=== PATIENT | female | born 1985 | race African-American/Black ===

== ENCOUNTER 2016-11-03 18:43 | Emergency (ER) | payer MEDICAID, OTHER ==
[~2016-11-03] VITALS: Ht 165.1 cm; Wt 83.5 kg
[~2016-11-03 18:43] MED LIST: BENZ200C47 PO; CLIN300C8 PO; PRED50TA PO; PROAIR HFA8.5 GM INH
[2016-11-03] MEDS ORDERED: AMOX875T PO (18:57)
--- NOTE | 2016-11-03 18:57 | PHYS DOC ---
Past Medical History Past Medical History: No Pertinent History Past Surgical History: Alcohol Use: None Drug Use: None Adult General Chief Complaint Chief Complaint: SORE THROAT HPI HPI Patient is a 30 year old female presents to the emergency department the three- day history of sore throat. She has had a positive strep exposure. She denies fever but complains of chills. Review of Systems Review of Systems Constitutional: Chills without measured fever Eyes: Denies change in visual acuity, redness, or eye pain [] HENT: Sore throat Respiratory: Denies cough or shortness of breath [] Cardiovascular: No additional information not addressed in HPI [] GI: Denies abdominal pain, nausea, vomiting, bloody stools or diarrhea [] : Denies dysuria or hematuria [] Musculoskeletal: Denies back pain or joint pain [] Integument: Denies rash or skin lesions [] Neurologic: Denies headache, focal weakness or sensory changes [] Endocrine: Denies polyuria or polydipsia [] Allergies Allergies Allergies Coded Allergies Type Severity Reaction Last Updated Verified No Known Drug Allergies 07/01/13 No Physical Exam Physical Exam Constitutional: Well developed, well nourished, no acute distress, non-toxic appearance. [] HENT: Normocephalic, atraumatic, bilateral external ears normal, oropharynx moist, posterior pharynx injected, uvula midline, no oral exudates, nose normal. [] Eyes: PERRLA, EOMI, conjunctiva normal, no discharge. [] Neck: Normal range of motion, no tenderness, supple with anterior cervical lymphadenopathy, no stridor. [] Cardiovascular:Heart rate regular rhythm, no murmur [] Lungs & Thorax: Bilateral breath sounds clear to auscultation [] Abdomen: Bowel sounds normal, soft, no tenderness, no masses, no pulsatile masses. [] Skin: Warm, dry, no erythema, no rash. [] Back: No tenderness, no CVA tenderness. [] EKG EKG [] Radiology/Procedures Radiology/Procedures [] Course & Med Decision Making Course & Med Decision Making Pertinent Labs and Imaging studies reviewed. (See chart for details) [] Dragon Disclaimer Dragon Disclaimer This electronic medical record was generated, in whole or in part, using a voice recognition dictation system. Departure Departure Impression: Primary Impression: Pharyngitis Disposition: 01 HOME, SELF-CARE Condition: STABLE Referrals: LONNIE CAMPOS (PCP) Patient Instructions: Viral and Bacterial Pharyngitis Scripts Amoxicillin (AMOXICILLIN) 875 Mg Tablet 1 TAB PO BID, #20 TAB Prov: LONNIE SEVILLA APRN 11/03/16 Problem Qualifiers Primary Impression: Pharyngitis Pharyngitis/tonsillitis etiology: unspecified etiology Qualified Codes: J02.9 - Acute pharyngitis, unspecified LONNIE SEVILLA APRN Nov 03, 2016 18:57
[2016-11-03 18:59] VITALS: BP 153/86
== END 2016-11-03 19:07 | disposition home or self-care (01) ==
LOC: ER 18:43
DX: J02.9 Acute pharyngitis, unspecified (principal)
CPT/HCPCS: 99283

== ENCOUNTER 2017-03-04 10:17 | Emergency (ER) | payer OTHER | END 2017-03-04 14:15 | disposition home or self-care (01) | LOC: ER 14:15 | DX: S86.912A Strain of unspecified muscle(s) and tendon(s) at lower leg level, left leg, initial encounter (principal); X58.XXXA Exposure to other specified factors, initial encounter; Y93.89 Activity, other specified; Y99.8 Other external cause status; Y92.89 Other specified places as the place of occurrence of the external cause | CPT/HCPCS: 93971; 99284-25 ==

== ENCOUNTER 2017-06-26 08:16 | Emergency (ER) | payer OTHER ==
[2017-06-26] MEDS: PENICILLIN G BENZATHINE LA 1,200,000 UNIT/2 ML DISP.SYRIN. IM (09:05)
== END 2017-06-26 09:12 | disposition home or self-care (01) ==
LOC: ER 08:16
DX: J03.90 Acute tonsillitis, unspecified (principal); J04.0 Acute laryngitis; H10.89 Other conjunctivitis
CPT/HCPCS: 96372; 99283-25; J0561

== ENCOUNTER 2017-09-06 11:49 | Emergency (ER) | payer OTHER | END 2017-09-06 12:25 | disposition home or self-care (01) | LOC: ER 11:49 | DX: B37.89 Other sites of candidiasis (principal) | CPT/HCPCS: 99283 ==

== ENCOUNTER 2018-03-29 08:45 | Emergency (ER) | payer OTHER ==
[~2018-03-29] VITALS: Ht 165.1 cm; Wt 88.5 kg
[~2018-03-29 08:45] MED LIST changes: +ALBU2.5V8 INH; +AMOX875T PO; +NYST100054 PO; -PROAIR HFA8.5 GM INH; +TOBR5DRO6 OD
--- NOTE | 2018-03-29 08:51 | PHYS DOC ---
Past Medical History Past Medical History: No Pertinent History (ANABEL CANTRELL DO) Past Surgical History: , Knee Replacement, Tubal ligation (ANABEL CANTRELL DO) Alcohol Use: None Drug Use: None (ANABEL CANTRELL DO) Adult General Chief Complaint Chief Complaint: Congestion HPI HPI Patient is a 32 YO F that is presenting with a week and a half of congestion and cough. She reports that her children were sick a couple weeks ago and she ended up getting the same symptoms that they had. She reports nasal congestion, sore throat, and productive cough with yellow sputum. She denies fever, chills, chest pain, abdominal pain, headache, nausea, and vomiting. She reports that she got her flu shot this season. She has not taken any medication for these symptoms. (ANABEL CANTRELL DO) Review of Systems Review of Systems Constitutional: Denies fever or chills [] Eyes: Denies change in visual acuity, redness, or eye pain [] HENT: Reports nasal congestion and sore throat [] Respiratory: Reports cough, denies shortness of breath [] Cardiovascular: Denies chest pain or palpitations [] GI: Denies abdominal pain, nausea, vomiting, or diarrhea [] : Denies dysuria or hematuria [] Integument: Denies rash or skin lesions [] Neurologic: Denies headache, focal weakness or sensory changes [] Complete systems were reviewed and found to be within normal limits, except as documented in this note. (ANABEL CANTRELL DO) Current Medications Current Medications Current Medications Medications (Trade) Dose Ordered Sig/Sienna Start Time Stop Time Status Last Admin Dose Admin Dexamethasone (Decadron) 10 mg 1X ONCE 03/29/18 09:00 03/29/18 09:01 DC 03/29/18 09:05 10 MG (YOLANDA PEACE APRN) Allergies Allergies Allergies Coded Allergies Type Severity Reaction Last Updated Verified No Known Drug Allergies 07/01/13 No (YOLANDA PEACE APRN) Physical Exam Physical Exam Constitutional: Well developed, well nourished, no acute distress, non-toxic appearance. [] HENT: Normocephalic, atraumatic, bilateral TM normal, oropharynx mildly erythematous, no oral exudates, nose normal. [] Eyes: Conjunctiva normal, no discharge. [] Neck: Normal range of motion, no tenderness, supple. [] Cardiovascular: Heart rate regular rhythm, no murmur [] Lungs & Thorax: Bilateral breath sounds clear to auscultation [] Abdomen: Bowel sounds normal, soft, no tenderness. [] Skin: Warm, dry, no erythema, no rash. [] Extremities: No tenderness, no edema. [] Neurologic: Alert and oriented X 3, no focal deficits noted. [] Psychologic: Affect normal, judgement normal, mood normal. [] (ANABEL CANTRELL DO) Current Patient Data Vital Signs Vital Signs Date Time Temp Pulse Resp B/P (MAP) Pulse Ox O2 Delivery O2 Flow Rate FiO2 03/29/18 09:12 98.2 94 16 134/83 (100) 99 Room Air 98.2 (YOLANDA PEACE APRN) EKG EKG [] (ANABEL CANTRELL DO) Radiology/Procedures Radiology/Procedures [] (ANABEL CANTRELL DO) Course & Med Decision Making Course & Med Decision Making Pertinent Labs and Imaging studies reviewed. (See chart for details) Patient is a 32 YO F that is presenting with cough and congestion for a week and a half. History and physical exam are indicative of a URI. Steroids given for inflammation and irritation. Antibiotics prescribed for coverage of possible bacterial superinfection. (ANABEL CANTRELL DO) Course & Med Decision Making Dr. Cantrell was called out to a meeting I prescribed antibiotics and tessalon perrles for this patient. (YOLANDA PEACE APRN) Dragon Disclaimer Dragon Disclaimer This electronic medical record was generated, in whole or in part, using a voice recognition dictation system. (ANABEL CANTRELL DO) Departure Departure Impression: Primary Impression: Upper respiratory infection Disposition: HOME, SELF-CARE Condition: STABLE Referrals: LONNIE CAMPOS (PCP) Patient Instructions: Upper Respiratory Infection, Adult, [id number] Additional Instructions: Fill prescription(s) and use as directed. Recommend use of a Cool mist humidifier in room at bedtime. Alternate Tylenol or ibuprofen as needed for pain /fever. Increase clear fluids. Avoid airway triggers such as smoke, fragrance, dust, and pollen. . Follow-up with your primary care doctor symptoms persist, return to the ER symptoms worsen. Scripts Benzonatate (TESSALON PERLE) 100 Mg Capsule 1 CAP PO TID PRN for COUGH, #21 CAP 0 Refills Prov: YOLANDA PEACE APRN 03/29/18 Azithromycin (ZITHROMAX) 250 Mg Tablet 1 PKG PO UD, #6 TAB Prov: YOLANDA PEACE APRN 03/29/18 Attending Signature Attending Signature I have personally interviewed and examined the patient. All charts, labs, and imaging studies were reviewed. I agree with the PA/CUSTOMER ACCOUNT SPECIALIST's findings, exam, and plan. (ANABEL CANTRELL DO) Problem Qualifiers Primary Impression: Upper respiratory infection URI type: unspecified URI Qualified Codes: J06.9 - Acute upper respiratory infection, unspecified ANABEL CANTRELL DO Mar 29, 2018 08:51 YOLANDA PEACE APRN Mar 29, 2018 09:53
[2018-03-29] MEDS ORDERED: DEXAMETHASONE 4 MG TABLET PO ONE (09:00)
[2018-03-29 09:12] VITALS: BP 134/83
[2018-03-29] MEDS ORDERED: BENZ100C PO (09:53)
[2018-03-29] MEDS ORDERED: AZIT250T PO (09:53)
== END 2018-03-29 10:12 | disposition home or self-care (01) ==
LOC: ER 08:45
DX: J06.9 Acute upper respiratory infection, unspecified (principal); Z98.890 Other specified postprocedural states; Z98.51 Tubal ligation status; Z96.659 Presence of unspecified artificial knee joint
CPT/HCPCS: 99283; J8540

== ENCOUNTER 2018-08-27 09:39 | Emergency (ER) | payer OTHER ==
[~2018-08-27] VITALS: Ht 165.1 cm; Wt 88.9 kg
[~2018-08-27 09:39] MED LIST changes: +AZIT250T PO; +BENZ100C PO
[2018-08-27] MEDS ORDERED: DEXAMETHASONE 4 MG TABLET PO STA (10:00)
--- NOTE | 2018-08-27 10:05 | PHYS DOC ---
Past Medical History Past Medical History: No Pertinent History Past Surgical History: No Surgical History Alcohol Use: None Drug Use: None Adult General Chief Complaint Chief Complaint: SORE THROAT HPI HPI Patient is a 32 year old female who presents with nasal drainage, cough, and sore throat for 2 days. The patient rates her pain as 6/10 and pressure. Has not tried any interventions at home. Review of Systems Review of Systems Constitutional: Denies fever or chills [] Eyes: Denies change in visual acuity, redness, or eye pain [] HENT: Reports nasal congestion and sore throat [] Respiratory: Reports cough but denies shortness of breath [] Cardiovascular: No additional information not addressed in HPI [] GI: Denies abdominal pain, nausea, vomiting, bloody stools or diarrhea [] : Denies dysuria or hematuria [] Musculoskeletal: Denies back pain or joint pain [] Integument: Denies rash or skin lesions [] Neurologic: Denies headache, focal weakness or sensory changes [] Endocrine: Denies polyuria or polydipsia [] Complete systems were reviewed and found to be within normal limits, except as documented in this note. Allergies Allergies Allergies Coded Allergies Type Severity Reaction Last Updated Verified No Known Drug Allergies 07/01/13 No Physical Exam Physical Exam Constitutional: Well developed, well nourished, no acute distress, non-toxic appearance. [] HENT: Normocephalic, atraumatic, bilateral external ears normal, oropharynx [address], throat is erythematous, no oral exudates, nose normal. [] Eyes: PERRLA, EOMI, conjunctiva normal, no discharge. [] Neck: Normal range of motion, no tenderness, supple, no stridor. [] Cardiovascular:Heart rate regular rhythm, no murmur [] Lungs & Thorax: Bilateral breath sounds clear to auscultation [] Abdomen: Bowel sounds normal, soft, no tenderness, no masses, no pulsatile masses. [] Skin: Warm, dry, no erythema, no rash. [] Back: No tenderness, no CVA tenderness. [] Extremities: No tenderness, no cyanosis, no clubbing, ROM intact, no edema. [] Neurologic: Alert and oriented X 3, normal motor function, normal sensory function, no focal deficits noted. [] Psychologic: Affect normal, judgement normal, mood normal. [] EKG EKG [] Radiology/Procedures Radiology/Procedures [] Course & Med Decision Making Course & Med Decision Making Pertinent Labs and Imaging studies reviewed. (See chart for details) Patient appears to have an upper respiratory infection that is likely viral in nature. Will give Decadron and then instructed patient to take Mucinex and Zyrtec over the counter at home. Dragon Disclaimer Dragon Disclaimer This electronic medical record was generated, in whole or in part, using a voice recognition dictation system. Departure Departure Impression: Primary Impression: Upper respiratory infection Disposition: HOME, SELF-CARE Condition: STABLE Referrals: LONNIE CAMPOS (PCP) Patient Instructions: Upper Respiratory Infection, Adult Additional Instructions: Thank you for visiting [facility]. We appreciate you trusting us with your care. If any additional problems come up don't hesitate to return to visit us. Please follow up with your primary care provider so they can plan additional care if needed and know about the problem that you had. If symptoms worsen come back to the Emergency Department. Any concerning symptoms that start such as chest pain, shortness of Air, weakness or numbness on one side of the body, running high fevers or any other concerning symptoms return to the ER. Please get Zyrtec and Mucinex and take per label instructions to help with symptoms. Problem Qualifiers Primary Impression: Upper respiratory infection URI type: unspecified viral URI Qualified Codes: J06.9 - Acute upper respiratory infection, unspecified ANABEL COLON APRN Aug 27, 2018 10:05
== END 2018-08-27 10:24 | disposition home or self-care (01) ==
LOC: ER 09:39
DX: J06.9 Acute upper respiratory infection, unspecified (principal)
CPT/HCPCS: 99282; J8540

== ENCOUNTER 2018-09-03 09:55 | Emergency (ER) | payer MEDICAID, OTHER ==
[~2018-09-03] VITALS: Ht 165.1 cm; Wt 89.1 kg
[2018-09-03] MEDS ORDERED: PRED20TA PO (10:24)
[2018-09-03] MEDS ORDERED: AZIT250T6 PO (10:24)
[2018-09-03] MEDS ORDERED: BENZ100C PO (10:24)
[2018-09-03] MEDS ORDERED: ALBU2.5V8 INH (10:24)
--- NOTE | 2018-09-03 10:24 | PHYS DOC ---
Past Medical History Past Medical History: No Pertinent History Past Surgical History: No Surgical History Alcohol Use: None Drug Use: None Adult General Chief Complaint Chief Complaint: SORE THROAT HPI HPI 32-year-old female presenting the emergency pertinent today with cough congestion and sore throat for the past 3 or 4 days. She is producing green sputum. She denies fevers at home. She denies abdominal pain or vomiting. Review of systems is negative for drooling stridor or difficulty breathing. All other review of systems is negative. ED course: 32-year-old female presenting to the emergency department today with cough congestion and sore throat. Patient is well-appearing on arrival here. Strep test obtained. We will give the patient Tessalon Perles along with azithromycin and an inhaler. The patient has been examined and was not found to have an emergency medical condition. The patient was then discharged home in stable condition to follow up with their primary care physician over the next 1- 2 days. They were to return if their symptoms worsened or if they were concerned for any reason. They were also instructed to return to the emergency department if they were unable to get the recommended and appropriate follow-up. [id number] discharge instructions and return precautions were given. Patient's questions were answered to their satisfaction. Patient is comfortable with plan. Allergies Allergies Allergies Coded Allergies Type Severity Reaction Last Updated Verified No Known Drug Allergies 07/01/13 No Physical Exam Physical Exam Constitutional: Well developed, well nourished, no acute distress, non-toxic appearance. [] HENT: Normocephalic, atraumatic, bilateral external ears normal, oropharynx moist, no oral exudates, nose normal. [] Eyes: PERRLA, EOMI, conjunctiva normal, no discharge. [] Neck: Normal range of motion, no tenderness, supple, no stridor. [] Cardiovascular:Heart rate regular rhythm, no murmur [] Lungs & Thorax: Bilateral breath sounds clear to auscultation [] Abdomen: Bowel sounds normal, soft, no tenderness, no masses, no pulsatile masses. [] Skin: Warm, dry, no erythema, no rash. [] Back: No tenderness, no CVA tenderness. [] Extremities: No tenderness, no cyanosis, no clubbing, ROM intact, no edema. [] Neurologic: Alert and oriented X 3, normal motor function, normal sensory function, no focal deficits noted. [] Psychologic: Affect normal, judgement normal, mood normal. [] Current Patient Data Vital Signs Vital Signs Date Time Temp Pulse Resp B/P (MAP) Pulse Ox O2 Delivery O2 Flow Rate FiO2 09/03/18 10:29 98.0 113 18 124/74 (91) 98 Room Air 98.0 EKG EKG [] Radiology/Procedures Radiology/Procedures [] Course & Med Decision Making Course & Med Decision Making Pertinent Labs and Imaging studies reviewed. (See chart for details) [] Dragon Disclaimer Dragon Disclaimer This electronic medical record was generated, in whole or in part, using a voice recognition dictation system. Departure Departure Impression: Primary Impression: Upper respiratory infection Disposition: HOME, SELF-CARE Condition: STABLE Referrals: LONNIE CAMPOS (PCP) Patient Instructions: Acute Bronchitis, [id number] Additional Instructions: Thank you for allowing us to participate in your care today. Return to the emergency department you have any new or worsening symptoms, or if you are concerned for any reason. Return to emergency department if you have any new or concerning symptoms including but not limited to fever, chills, nausea, vomiting, intractable pain, any new rashes, chest pain, shortness of air, uncontrolled bleeding, difficulty breathing, and/or vision loss. Follow up with your primary care physician within 1-2 days. Call your Primary Doctor tomorrow and inform them of your visit today. If you do not have a primary care provider we are happy to provide you with a list of our primary care providers contact information. This condition should be evaluated by your primary care physician and any recommended consulting services for continued management within 2 days after discharge. If at any time, you are having difficulty getting into your primary care doctor or a specialist, return to the emergency department. Scripts Benzonatate (TESSALON PERLE) 100 Mg Capsule 1 CAP PO TID, #21 CAP Prov: NAYE VELA MD 09/03/18 Azithromycin (AZITHROMYCIN TABLET) 250 Mg Tablet 1 PKG PO UD, #6 TAB Prov: NAYE VELA MD 09/03/18 Prednisone (PREDNISONE) 20 Mg Tablet 2 TAB PO DAILY, #5 TAB 0 Refills Prov: NAYE VELA MD 09/03/18 Albuterol Sulfate (PROAIR HFA INHALER) 8.5 Gm Hfa.aer.ad 1 PUFF INH PRN Q6HRS PRN for SHORTNESS OF BREATH, #1 INHALER 0 Refills Prov: NAYE VELA MD 09/03/18 NAYE VELA MD Sep 03, 2018 10:24
[2018-09-03 10:29] VITALS: BP 124/74
== END 2018-09-03 10:38 | disposition home or self-care (01) ==
LOC: ER 09:55
DX: J06.9 Acute upper respiratory infection, unspecified (principal)
CPT/HCPCS: 87070; 87880; 99283

== ENCOUNTER 2019-02-25 07:46 | Emergency (ER) | payer MEDICAID ==
[~2019-02-25] VITALS: Ht 165.1 cm; Wt 88.9 kg
[~2019-02-25 07:46] MED LIST changes: +AZIT250T6 PO; +PRED20TA PO
[2019-02-25 07:55] VITALS: BP 133/73
[2019-02-25] MEDS ORDERED: AZIT250T PO (08:10)
[2019-02-25] MEDS ORDERED: METH4TAB2 PO (08:10)
--- NOTE | 2019-02-25 08:10 | PHYS DOC ---
Past Medical History Past Medical History: No Pertinent History Past Surgical History: Alcohol Use: None Drug Use: None Adult General Chief Complaint Chief Complaint: SORE THROAT HPI HPI Patient is a 33-year-old female who presents with complaint of productive cough, sinus drainage and sore throat for the last week. Patient indicates the cough is been productive of yellow-green sputum. She is not aware of any fever. She denies any nausea, vomiting or diarrhea. She rates the sore throat is moderate and states that it is more painful when she swallows.[] Review of Systems Review of Systems Constitutional: Denies fever or chills [] HENT: Positive congestion and sore throat [] Respiratory: Positive cough without shortness of breath [] Cardiovascular: No additional information not addressed in HPI [] Integument: Denies rash or skin lesions [] Neurologic: Denies headache, focal weakness or sensory changes [] Allergies Allergies Allergies Coded Allergies Type Severity Reaction Last Updated Verified No Known Drug Allergies 07/01/13 No Physical Exam Physical Exam Constitutional: Well developed, well nourished, no acute distress, non-toxic appearance. [] HENT: Normocephalic, atraumatic, bilateral external ears normal, oropharynx moist, no oral exudates, nose normal. [] Cardiovascular: Regular rate and rhythm[] Lungs & Thorax: Bilateral breath sounds clear to auscultation [] Skin: Warm, dry, no erythema, no rash. [] Extremities: No tenderness, no cyanosis, no clubbing, ROM intact. [] Current Patient Data Vital Signs Vital Signs Date Time Temp Pulse Resp B/P (MAP) Pulse Ox O2 Delivery O2 Flow Rate FiO2 02/25/19 07:55 98.6 88 14 133/73 (93) 99 Room Air 98.6 EKG EKG [] Radiology/Procedures Radiology/Procedures [] Course & Med Decision Making Course & Med Decision Making Pertinent Labs and Imaging studies reviewed. (See chart for details) [] Dragon Disclaimer Dragon Disclaimer This electronic medical record was generated, in whole or in part, using a voice recognition dictation system. Departure Departure Impression: Primary Impression: Acute bronchitis Disposition: 01 HOME, SELF-CARE Condition: STABLE Referrals: LONNIE CAMPOS (PCP) Patient Instructions: Acute Bronchitis Scripts Azithromycin (ZITHROMAX) 250 Mg Tablet 1 PKG PO UD, #6 TAB Prov: SHAISTA WHYTE Jr. DO 02/25/19 Methylprednisolone (MEDROL) 4 Mg Tab.ds.pk 1 PKG PO UD, #1 PKG Prov: SHAISTA WHYTE Jr. DO 02/25/19 Problem Qualifiers Primary Impression: Acute bronchitis Bronchitis organism: unspecified organism Qualified Codes: J20.9 - Acute bronchitis, unspecified SHAISTA WHYTE Jr. DO Feb 25, 2019 08:10
== END 2019-02-25 08:15 | disposition home or self-care (01) ==
LOC: ER 07:46
DX: J20.9 Acute bronchitis, unspecified (principal)
CPT/HCPCS: 99283

== ENCOUNTER 2020-08-12 19:50 | Emergency (ER) | payer MEDICAID ==
[~2020-08-12] VITALS: Ht 165.1 cm; Wt 95.0 kg
[~2020-08-12 19:50] MED LIST changes: -CLIN300C8 PO; +CLIN300C9 PO; +METH4TAB2 PO
[2020-08-12 20:20] VITALS: BP 155/99
[2020-08-12] MEDS ORDERED: IBUPROFEN 400 MG TABLET. PO ONE (20:45)
[2020-08-12] MEDS ORDERED: HYDROcodone/APAP 5/325MG 1 TAB TABLET PO ONE (20:45)
--- NOTE | 2020-08-12 21:16 | ED.ADGEN ---
Past Medical History Past Medical History: No Pertinent History Past Surgical History: , Tubal ligation Smoking Status: Never Smoker Alcohol Use: None Drug Use: None General Adult EDM: Chief Complaint: MECHANICAL FALL HPI: HPI: Patient is a 34 year old female coming in for pain after mechanical fall. Patient was at the grocery store when she slipped on exit was broken on the floor. States she felt onto her left side and also struck her right knee on the shopping cart. And is able to ambulate since. No other complaints, otherwise been well. Review of Systems: Review of Systems: All other systems within normal limits except for as noted in the HPI Current Medications: Current Medications Medications (Trade) Dose Ordered Sig/Sienna Start Time Stop Time Status Last Admin Dose Admin Acetaminophen/ Hydrocodone Bitart (Lortab 5/325) 1 tab 1X ONCE 08/12/20 20:45 08/12/20 20:46 DC 08/12/20 20:48 1 TAB Ibuprofen (Motrin) 800 mg 1X ONCE 08/12/20 20:45 08/12/20 20:46 DC 08/12/20 20:48 800 MG Allergies: Allergies: Allergies Coded Allergies Type Severity Reaction Last Updated Verified No Known Drug Allergies 07/01/13 No Physical Exam: PE: Constitutional: Well developed, well nourished, no acute distress, non-toxic appearance. [] HENT: Normocephalic, atraumatic, bilateral external ears normal, nose normal. [] Eyes: PERRLA, conjunctiva normal, no discharge. [] Neck: No rigidity, supple, no stridor. [] Cardiovascular: Regular rate and rhythm, brisk cap refill [] Lungs & Thorax: Non labored symmetric respirations, no tachypnea or respiratory distress [] Abdomen: Soft, nondistended. Skin: Warm, dry, no erythema, no rash. [] Back: Unremarkable Extremities: No deformities, range of motion grossly intact, no lower extremity edema. No deformity. Tenderness over left upper extremity and left flank. [] Neurologic: Alert and oriented X 3, no focal deficits noted. [] Psychologic: Affect normal, judgement normal, mood normal. [] Current Patient Data: Vital Signs: Vital Signs Date Time Temp Pulse Resp B/P (MAP) Pulse Ox O2 Delivery O2 Flow Rate FiO2 6/19/21 20:48 16 99 Room Air 08/12/20 20:20 97.9 105 155/99 (117) 97.9 EKG: EKG: [] Heart Score: C/O Chest Pain: No Risk Factors: Risk Factors: DM, Current or recent (<one month) smoker, HTN, HLP, family history of CAD, obesity. Risk Scores: Score 0 - 3: 2.5% MACE over next 6 weeks - Discharge Home Score 4 - 6: 20.3% MACE over next 6 weeks - Admit for Clinical Observation Score 7 - 10: 72.7% MACE over next 6 weeks - Early Invasive Strategies Radiology/Procedures: Radiology/Procedures: [][address] [id number] IMAGING REPORT Signed PATIENT: BENNY LOZANO ACCOUNT: [id number] : 1985 LOCATION: ER AGE: 34 SEX: F EXAM STATUS: REG ER ORD. PHYSICIAN: JAYMIE ANGELES MD REASON: fall PROCEDURE: RIBS LEFT Exam: Left ribs 2 views INDICATION: Fall TECHNIQUE: Frontal and oblique views of the left ribs Comparisons: None FINDINGS: No displaced rib fractures. Visualized soft tissues are unremarkable. IMPRESSION: No displaced rib fractures. Electronically signed by: Mihir Resendiz MD (08/12/2020 9:20 PM) [facility] DICTATED and SIGNED BY: MIHIR RESENDIZ MD DATE: 08/12/20 [id number] [address] [id number] IMAGING REPORT Signed PATIENT: BENNY LOZANO ACCOUNT: [id number] : 1985 LOCATION: ER AGE: 34 SEX: F EXAM STATUS: REG ER ORD. PHYSICIAN: JAYMIE ANGELES MD REASON: fall PROCEDURE: HUMERUS LEFT EXAM: 1. AP and lateral views left forearm 2. AP and lateral views left humerus DATE: 08/12/2020 8:41 PM INDICATION: Reason: fall / Spl. Instructions: / History: . COMPARISON: No Prior FINDINGS: No evidence of acute fracture or dislocation. Joint spaces are preserved without significant degenerative/proliferative change. Mild dorsal forearm soft tissue swelling. IMPRESSION: No evidence of acute fracture or dislocation. Electronically signed by: Dalton Snider MD (08/12/2020 9:19 PM) [facility] DI[facility]ATED and SIGNED BY: DALTON SNIDER MD DATE: 08/12/20 [id number] Course & Med Decision Making: Course & Med Decision Making Pertinent Labs and Imaging studies reviewed. (See chart for details) [] Dragon Disclaimer: Dragon Disclaimer: This electronic medical record was generated, in whole or in part, using a voice recognition dictation system. Departure Departure Impression: Primary Impression: Fall Disposition: 01 HOME / SELF CARE / HOMELESS Condition: STABLE Referrals: NO PCP (PCP) Patient Instructions: RICE - Routine Care for Injuries JAYMIE ANGELES MD Aug 12, 2020 21:15
--- NOTE | 2020-08-12 21:21 | RAD ---
EXAM: 1. AP and lateral views left forearm 2. AP and lateral views left humerus DATE: 08/12/2020 8:41 PM INDICATION: Reason: fall / Spl. Instructions: / History: . COMPARISON: No Prior FINDINGS: No evidence of acute fracture or dislocation. Joint spaces are preserved without significant degenera tive/proliferative change. Mild dorsal forearm soft tissue swelling. IMPRESSION: No evidence of acute fracture or dislocation. Electronically signed by: Dalton Baker MD (08/12/2020 9:19 PM) [facility]
--- NOTE | 2020-08-12 21:23 | RAD ---
Exam: Left ribs 2 views INDICATION: Fall TECHNIQUE: Frontal and oblique views of the left ribs Comparisons: None FINDINGS: No displaced rib fractures. Visualized soft tissues are unremarkable. IMPRESSION: No displaced rib fractures. Electronically signed by: Mihir Tabares MD (08/12/2020 9:20 PM) JAYLIN
== END 2020-08-12 21:49 | disposition home or self-care (01) ==
LOC: ER 19:50
DX: M79.632 Pain in left forearm (principal); M25.512 Pain in left shoulder; R07.81 Pleurodynia; G89.11 Acute pain due to trauma; W01.198A Fall on same level from slipping, tripping and stumbling with subsequent striking against other object, initial encounter; Y93.89 Activity, other specified; Y92.512 Supermarket, store or market as the place of occurrence of the external cause; Y99.8 Other external cause status
CPT/HCPCS: 71100; 73060; 73090; 99284

== ENCOUNTER 2020-08-22 15:26 | Emergency (ER) | payer MEDICAID ==
[~2020-08-22] VITALS: Ht 165.1 cm; Wt 92.5 kg
[2020-08-22 16:07] VITALS: BP 123/84
== END 2020-08-22 18:19 | disposition left against medical advice (07) ==
LOC: ER 15:26
DX: M25.552 Pain in left hip (principal); R51.9 Headache, unspecified; Z53.21 Procedure and treatment not carried out due to patient leaving prior to being seen by health care provider

== ENCOUNTER 2020-10-23 08:48 | Emergency (ER) | payer MEDICAID ==
[~2020-10-23] VITALS: Ht 162.6 cm; Wt 90.4 kg
[2020-10-23 09:14] VITALS: BP 123/85
[2020-10-23] MEDS ORDERED: DEXAMETHASONE 4 MG TABLET PO ONE (10:00)
[2020-10-23] MEDS ORDERED: AZIT250T PO (10:09)
[2020-10-23] MEDS ORDERED: METH4TAB2 PO (10:09)
--- NOTE | 2020-10-23 10:10 | PHYS DOC ---
Past Medical History Past Medical History: No Pertinent History (ANABEL GODINEZ APRN) Past Surgical History: , Tubal ligation (ANABEL GODINEZ APRN) Smoking Status: Never Smoker Alcohol Use: None Drug Use: None (ANABEL GODINEZ APRN) General Adult EDM: Chief Complaint: SKIN RASH/ABSCESS HPI: HPI: Patient is a 34 year old female presents to the emergency department complaining of increased nasal congestion, unable to breathe through nose, nonproductive cough, loss of taste and loss of smell, rash to her axilla and abdomen, reports positive COVID-19 test this past Friday, denies chest pain, shortness of breath, vaginal discharge, increased thirst or increased urination, urinary tract infection type signs and symptoms, abdominal pain, nausea, vomiting, or diarrhea. Patient denies headaches. Denies fever or chills at home however states she is taking Tylenol and Motrin daily for body aches. Patient reports her last menstrual cycle was 1 week ago with normal duration of flow. Patient denies taking prescription medications at home, states she has been placing [id number] cortisone cream on her rash for itch relief. Patient denies any other physical complaints or physical concerns. (ANABEL GODINEZ APRN) Review of Systems: Review of Systems: 14 body systems of review of systems have been reviewed. See HPI for pertinent positives and negative responses, otherwise all other systems are negative, nonpertinent or noncontributory. Constitutional: Negative except as outlined in HPI above. Skin: Negative except as outlined in HPI above. Eyes: Negative except as outlined in HPI above. HENT: Negative except as outlined in HPI above. Respiratory: Negative except as outlined in HPI above. Cardiovascular: Negative except as outlined in HPI above. GI: Negative except as outlined in HPI above. : Negative except as outlined in HPI above. Musculoskeletal: Negative except as outlined in HPI above. Integument: Negative except as outlined in HPI above. Neurologic: Negative except as outlined in HPI above. Endocrine: Negative except as outlined in HPI above. Lymphatic: Negative except as outlined in HPI above. Psychiatric: Negative except as outlined in HPI above. (ANABEL GODINEZ APRN) Heart Score: C/O Chest Pain: No Risk Factors: Risk Factors: DM, Current or recent (<one month) smoker, HTN, HLP, family history of CAD, obesity. Risk Scores: Score 0 - 3: 2.5% MACE over next 6 weeks - Discharge Home Score 4 - 6: 20.3% MACE over next 6 weeks - Admit for Clinical Observation Score 7 - 10: 72.7% MACE over next 6 weeks - Early Invasive Strategies (ANABEL GODINEZ APRN) Allergies: Allergies: Allergies Coded Allergies Type Severity Reaction Last Updated Verified No Known Drug Allergies 10/23/20 No (ANABEL GODINEZ APRN) Physical Exam: PE: Constitutional: Well developed, well nourished, no acute distress, non-toxic appearance. 34-year-old female in no apparent distress. HENT: Normocephalic, atraumatic. No lymphadenopathy of the head or neck, oropharynx pink, moist, no swelling or edema appreciated, no deep tissue infectious process appreciated, no laryngeal edema. No postnasal drip. No drooling, no trismus, patient speaking in normal voice tones. Bilateral nasal turbinates boggy, clear nasal drainage bilateral nares, mild pain to palpation over frontal and nasal sinuses. Eyes: Conjunctiva normal, no discharge. Neck: Normal range of motion, no stridor. No nuchal rigidity, no meningismus signs. Cardiovascular: No cyanosis appreciated, distal cap refill less than 2 seconds. Lungs & Thorax: Patient is in no respiratory distress, no audible adventitious lung sounds appreciated. Lung sounds clear to auscultation all lung guerrero. Abdomen: Nontender, no abnormalities noted. Skin: Warm, dry, no erythema, no rash. Fine raised rash, nonerythematous to bilateral axilla and across mid abdomen, skin is intact, no lesions appreciated. Back: No tenderness, no deformities. Extremities: No tenderness, no cyanosis, no clubbing, ROM intact, no edema. [] Neurologic: Alert and oriented X 3, normal motor function, normal sensory function, no focal deficits noted. Psychologic: Affect normal, judgement normal, mood normal. (ANABEL GODINEZ APRN) Current Patient Data: Vital Signs: Vital Signs Date Time Temp Pulse Resp B/P (MAP) Pulse Ox O2 Delivery O2 Flow Rate FiO2 10/23/20 09:14 98.4 90 16 123/85 (97) 98 Room Air 98.4 (ANABEL GODINEZ APRN) EKG: EKG: [] (ANABEL GODINEZ APRN) Radiology/Procedures: Radiology/Procedures: [] (ANABEL GODINEZ APRN) Course & Med Decision Making: Course & Med Decision Making Pertinent Labs and Imaging studies reviewed. (See chart for details) 34-year-old female, vital signs reviewed, presents to the emergency department concerning rash and nasal congestion for the past week. Physical examination of skin rash consistent with viral exanthem, most likely related to COVID-19 virus, nasal congestion and symptoms consistent with sinusitis, will treat rash with p.o. Decadron, prescription for Medrol Dosepak, Z-Maxwell for sinusitis. Discussed home care with patient, follow-up with PCP this week, return to ER precautions and concerns, patient gave verbal confirmation of and is amenable with ED discharge planning. Discussed with the patient all findings and diagnostic testing as well as the need to follow-up with their primary care provider for further evaluation and treatment or return to the ED if any new or worsening symptoms. Strict return precautions were also discussed at length, the patient voiced understanding and agreement with the discharge planning. The patient was nontoxic in appearance, in no apparent distress, and hemodynamically stable at the time of disposition. (ANABEL GODNIEZ APRN) Dragon Disclaimer: Dragon Disclaimer: This electronic medical record was generated, in whole or in part, using a voice recognition dictation system. (ANABEL GODINEZ APRN) Departure Departure Impression: Primary Impression: Sinusitis Qualified Codes: J01.90 - Acute sinusitis, unspecified Additional Impression: Viral exanthem, unspecified Disposition: 01 HOME / SELF CARE / HOMELESS Condition: GOOD Referrals: RONNIE SON (PCP) Patient Instructions: Rash, Sinusitis Additional Instructions: You were seen today in the emergency department for increased nasal congestion and a rash to your armpit areas and abdomen. You were treated today for the rash with an oral steroid, I am prescribing you a prescription of oral steroid to take as directed at home. I am also prescribing you an antibiotic for your sinus infection. Please take as directed. Please follow-up with your primary care physician this week for reexamination ongoing treatment, return to the emergency department for worsening symptoms or other concerns. Thank you for visiting our Emergency Department. It was a pleasure taking care of you today in the emergency department and we appreciate you trusting us with your care. If any additional problems come up don't hesitate to return to visit us. Please follow up with your primary care provider so they can plan additional care if needed and know about the problem that you had. If symptoms worsen come back to the Emergency Department. Any concerning symptoms that start such as chest pain, shortness of air, weakness or numbness on one side of the body, running high fevers or any other concerning symptoms return to the ER. Scripts Azithromycin (ZITHROMAX) 250 Mg Tablet 1 PKG PO UD for sinus infection, #6 TAB 0 Refills Prov: ANABEL GODINEZ APRN 10/23/20 Methylprednisolone (MEDROL) 4 Mg Tab.ds.pk 1 PKG PO UD for skin rash, #1 PKG 0 Refills Prov: ANABEL GODINEZ APRN 10/23/20 Attending Signature Attending Signature I have reviewed the PA/PUBLIC HEALTH INSPECTOR's note and plan of care. I was available for consultation as needed during the patient's visit in the emergency department. I agree with the clinical impression, plan, and disposition. (ANABEL CANTRELL DO) ANABEL GODINEZ APRN Oct 23, 2020 10:10 ANABEL CANTRELL DO Oct 23, 2020 14:30
== END 2020-10-23 10:13 | disposition home or self-care (01) ==
LOC: ER 08:48
DX: J01.90 Acute sinusitis, unspecified (principal); B09 Unspecified viral infection characterized by skin and mucous membrane lesions
CPT/HCPCS: 99283

== ENCOUNTER → 2021-07-08 | Emergency (ER) | payer MEDICAID ==
[~2021-07-08] VITALS: Ht 165.1 cm; Wt 91.6 kg
[~2021-07-08] MED LIST changes: +CLIN-94 PO; -CLIN300C9 PO
[2021-07-08 10:12] VITALS: BP 152/90
--- NOTE | 2021-07-08 10:27 | PHYS DOC ---
Past Medical History Past Medical History: No Pertinent History Past Surgical History: , Tubal ligation Smoking Status: Never Smoker Alcohol Use: None Drug Use: None General Adult EDM: Chief Complaint: ALLERGIES HPI: HPI: Patient is a 35 year old female with a history of seasonal allergies who prese nts with left eye redness. Patient states that she was given refresh eyedrops several days ago from [place]. Patient states that it improved slightly but not very much. She does have history of seasonal allergies, she has redness in her left eye on the medial aspect. Otherwise she is feeling fine. Review of Systems: Review of Systems: Constitutional: Denies fever or chills. [] Eyes: Denies change in visual acuity. [] HENT: Denies nasal congestion or sore throat. [] Respiratory: Denies cough or shortness of breath. [] Cardiovascular: Denies chest pain or edema. [] GI: Denies abdominal pain, nausea, vomiting, bloody stools or diarrhea. [] : Denies dysuria. [] Musculoskeletal: Denies back pain or joint pain. [] Integument: Denies rash. [] Neurologic: Denies headache, focal weakness or sensory changes. [] Endocrine: Denies polyuria or polydipsia. [] Lymphatic: Denies swollen glands. [] Psychiatric: Denies depression or anxiety. [] Heart Score: C/O Chest Pain: No Risk Factors: Risk Factors: DM, Current or recent (<one month) smoker, HTN, HLP, family history of CAD, obesity. Risk Scores: Score 0 - 3: 2.5% MACE over next 6 weeks - Discharge Home Score 4 - 6: 20.3% MACE over next 6 weeks - Admit for Clinical Observation Score 7 - 10: 72.7% MACE over next 6 weeks - Early Invasive Strategies Allergies: Allergies: Allergies Coded Allergies Type Severity Reaction Last Updated Verified No Known Drug Allergies 10/23/20 No Physical Exam: PE: Constitutional: Well developed, well nourished, no acute distress, non-toxic appearance. [] HENT: Normocephalic, atraumatic, bilateral external ears normal, oropharynx moist, no oral exudates, nose normal. [] Eyes: PERRLA, EOMI, conjunctiva left eye with medial redness, watery[] Neck: Normal range of motion, no tenderness, supple, no stridor. [] Cardiovascular:Heart rate regular rhythm, no murmur [] Lungs & Thorax: Bilateral breath sounds clear to auscultation [] Abdomen: Bowel sounds normal, soft, no tenderness, no masses, no pulsatile masses. [] Skin: Warm, dry, no erythema, no rash. [] Back: No tenderness, no CVA tenderness. [] Extremities: No tenderness, no cyanosis, no clubbing, ROM intact, no edema. [] Neurologic: Alert and oriented X 3, normal motor function, normal sensory function, no focal deficits noted. [] Psychologic: Affect normal, judgement normal, mood normal. [] EKG: EKG: [] Radiology/Procedures: Radiology/Procedures: [] Impression: Allergic conjunctivitis Course & Med Decision Making: Course & Med Decision Making Pertinent Labs and Imaging studies reviewed. (See chart for details) 35-year-old female seen and evaluated by myself. Clinically consistent with allergic conjunctivitis. Patient recommended to use Naphcon drops. Patient discharged in stable condition. Patient agreed with the plan of action, given ER precautions. All questions answered. Cloud9 IDE Disclaimer: Cloud9 IDE Disclaimer: This electronic medical record was generated, in whole or in part, using a voice recognition dictation system. Departure Departure Impression: Primary Impression: Allergic conjunctivitis Disposition: 01 HOME / SELF CARE / HOMELESS Condition: GOOD Patient Instructions: Allergic Conjunctivitis, [id number] Additional Instructions: You may use Naph-con drops. They are sold at any [facility], [facility] or any other pharmacy. I suggest you start using 1 drop 2-3 times a day. DIRECTIONS: To apply eye drops, wash your hands first. To avoid contamination, do not touch the dropper tip or let it touch your eye or any other surface. Remove contact lenses before applying the eye drops. Wait at least 10 minutes after using this medication before inserting contact lenses. If your eyes are red, ask your doctor whether you should wear your contact lenses. Before using, check this product visually. Do not use if the liquid has changed color or is cloudy. Discard the medication away from children and pets. Use this medication in the affected eye(s) up to 4 times a day as needed or as directed by your doctor. Tilt your head back, look upward, and pull down the lower eyelid to make a pouch. Hold the dropper directly over the eye and place 1 drop into the pouch. Look downward and gently close your eyes for [address] one finger at the corner of the eye near the nose and apply ge ntle pressure. This will prevent the medication from draining away from the eye. Try not to blink and do not rub the eye. Repeat these steps if your dose is for more than 1 drop and for the other eye if so directed. LUCIA GALVEZ MD July 08, 2021 10:26
== END ==
LOC: ER 09:52
DX: H10.12 Acute atopic conjunctivitis, left eye (principal)
CPT/HCPCS: 99282